=== PATIENT | female | born 2000 | race Two or more races ===

== ENCOUNTER 2024-05-30 17:25 | Emergency (ER) | payer OTHER ==
[~2024-05-30] VITALS: Ht 162.6 cm; Wt 47.6 kg
[2024-05-30] MEDS ORDERED: 0.9 % SODIUM CHLORIDE 1,000 ML IV STA (17:56)
[2024-05-30] MEDS ORDERED: ONDANSETRON HCL 2 MG/ML VIAL IV STA (17:56)
[2024-05-30 18:30] LABS: HEMATOCRIT 39.2 % (36.0-45.00); HEMOGLOBIN 13.9 g/dL (12.0-15.00); MEAN CELL VOLUME 93.1 fL (80.00-100.00); MEAN CORPUSCULAR HGB CONC 35.4 g/dl (32.0-36.0); RED BLOOD COUNT 4.21 M/uL (4.00-6.00); RED CELL DISTRIBUTION WIDTH 13.2 % (11.5-14.5)
[2024-05-30 18:31] LABS: PLATELET COUNT 121 K/uL (150-450)
[2024-05-30 18:50] LABS: CALCIUM 8.6 mg/dL (8.5-10.1); CREATININE SERUM 0.77 mg/dL (0.55-1.02); GFR 91.34; POTASSIUM 3.59 mEq/L (3.5-5.1)
[2024-05-30 19:28] LABS: PH,URINE 6.5 (5.0-8.0); URINE APPEARANCE Clear; URINE BILIRRUBIN Negative (NEGATIVE); URINE BLOOD Negative; URINE COLOR Yellow; URINE GLUCOSE Negative (NEGATIVE); URINE LEUKOCYTE Negative; URINE NITRATE Negative; URINE PROTEIN Negative (NEGATIVE); URINE UROBILINOGEN 0.2 E.U./dl
[2024-05-30 19:32] LABS: URINE BACTERIA 1522.4 uL (0.0-1933); URINE EPITHELIAL CELLS 72.9 uL (0.0-38.8); URINE RBC 2.3 uL (0.0-20.8)
[2024-05-30 20:07] LABS: URINE KETONE 40 (NEGATIVE)
== END 2024-05-30 21:34 | disposition home or self-care (01) ==
LOC: ER 17:27
PROVIDERS: Emergency Medicine
DX: K52.89 Other specified noninfective gastroenteritis and colitis (principal); B34.9 Viral infection, unspecified; Z20.822 Contact with and (suspected) exposure to COVID-19